=== PATIENT | male | born 1950 | race Caucasian/White ===

== ENCOUNTER 2019-02-09 07:42 | Day surgery (SDC) | payer MEDICARE, BC ==
[~2019-02-09] VITALS: Ht 172.7 cm; Wt 78.7 kg
[~2019-02-09 07:42] MED LIST: Aspirin EC81 MG PO; B-121000 MCG PO; COENZYME Q10200 MG PO; Daily Multiple1 EACH PO; ENBREL; ENBREL MIN50 MG/1 ML SC; FOLI1; FOLI1 PO; Icaps Tablet1 EACH PO; LISI5 PO; LOVA20; Lipitor20 MG PO; METTREX2.5; Methotrexa25 MG/1 ML IM; Mobic15 MG PO; NITR.4SL SL; PRINIVIL; Transderm-Scop1 EACH TD; [UNRECOGNIZED DRUG - OTHER]
== END 2019-02-09 10:38 | disposition home or self-care (01) ==
LOC: ORSCSDS 07:42
PROVIDERS: Surgery
PROC: 0DJD8ZZ Inspection of Lower Intestinal Tract, Via Natural or Artificial Opening Endoscopic (ICD-10-PCS; principal; 2019-02-09 09:00)
DX: Z12.11 Encounter for screening for malignant neoplasm of colon (principal); I25.10 Atherosclerotic heart disease of native coronary artery without angina pectoris; E78.5 Hyperlipidemia, unspecified; I10 Essential (primary) hypertension; Z79.899 Other long term (current) drug therapy; Z79.82 Long term (current) use of aspirin
CPT/HCPCS: J2704; J7120

== ENCOUNTER → 2019-09-01 | Outpatient (CLI) | payer MEDICARE, BC | END | disposition home or self-care (01) | LOC: PLD 14:00 → LAB SHORT 14:00 | DX: C44.719 Basal cell carcinoma of skin of left lower limb, including hip (principal) | CPT/HCPCS: 88305 ==

== ENCOUNTER 2023-07-13 14:25 | Emergency (ER) | payer MEDICARE, BC ==
[~2023-07-13] VITALS: Ht 172.7 cm; Wt 77.1 kg
[2023-07-13 14:37] VITALS: BP 148/100
== END 2023-07-13 16:25 | disposition home or self-care (01) ==
LOC: ER 14:25
DX: S09.90XA Unspecified injury of head, initial encounter (principal); W18.30XA Fall on same level, unspecified, initial encounter; Y93.H2 Activity, gardening and landscaping; Y92.096 Garden or yard of other non-institutional residence as the place of occurrence of the external cause; Z79.82 Long term (current) use of aspirin; Z79.631 Long term (current) use of antimetabolite agent; Z79.899 Other long term (current) drug therapy
CPT/HCPCS: 70450

== ENCOUNTER → 2024-03-30 | Outpatient (CLI) | payer MEDICARE, BC ==
[2024-04-02 08:59] LABS: B PERTUSSIS/PARAPERTUSS SOURCE Nasopharyngeal; BORD PARAPERTUSSIS BY PCR Not Detected; BORDETELLA PERTUSSIS BY PCR Not Detected
== END | disposition home or self-care (01) ==
LOC: LAB SHORT 13:12 → LAB 13:12
PROVIDERS: Internal Medicine
DX: R05.1 Acute cough (principal); R50.9 Fever, unspecified
CPT/HCPCS: 87798